=== PATIENT | male | born 1960 | race Hispanic/Latino ===

== ENCOUNTER → 2023-03-18 | Outpatient (CLI) | payer OTHER ==
[2023-03-18 09:03] LABS: INR 0.93 (0.85-1.15); PROTHROMBIN TIME 10.8 SEC (9.6-11.6)
[2023-03-18 09:05] LABS: PARTIAL THROMBOPLASTIN TIME 29.4 SEC (26.3-35.5)
== END | disposition home or self-care (01) ==
LOC: RAH 08:02
PROVIDERS: ATTEND Otolaryngology Plastic Surgery within the Head & Neck
DX: R59.0 Localized enlarged lymph nodes (principal); Z79.01 Long term (current) use of anticoagulants
CPT/HCPCS: 85610; 85730; 88184; 88185; 88189; 36415; 38505; 76942; A4215